=== PATIENT | male | born 1970 | race Caucasian/White ===

== ENCOUNTER 2020-08-15 08:21 | Outpatient (CLI) | payer OTHER, BC ==
[2020-08-15] MEDS ORDERED: MIDAZOLAM 1 MG/ML, 5ML ONE (08:54)
[2020-08-15] MEDS ORDERED: FLUMAZENIL 0.1 MG/1 ML, 5ML ONE (08:54)
[2020-08-15] MEDS ORDERED: FENTANYL PF 100 MCG/2ML ONE (08:54)
[2020-08-15] MEDS ORDERED: NALOXONE 1 MG/ML, 2ML ONE (08:55)
== END 2020-08-15 23:59 | disposition home or self-care (01) ==
LOC: RAD 08:21 → EDSTATUS 09:00 → RAD 23:59
PROVIDERS: ATTEND Nurse Practitioner
DX: M47.816 Spondylosis without myelopathy or radiculopathy, lumbar region (principal); M47.814 Spondylosis without myelopathy or radiculopathy, thoracic region; M51.36 Other intervertebral disc degeneration, lumbar region; M51.24 Other intervertebral disc displacement, thoracic region; I10 Essential (primary) hypertension
CPT/HCPCS: 72146; 72148; 99156; 99157; J2250; J3010; J2310